=== PATIENT | female | born 1950 | race Hispanic/Latino ===

== ENCOUNTER → 2023-12-17 | Outpatient (CLI) | payer OTHER, MEDICARE ==
[2023-12-17] MEDS: REGADENOSON 0.4 MG/5 ML PF SYG IVP SCH (11:14)
== END | disposition home or self-care (01) ==
LOC: RAH 08:56
PROVIDERS: ATTEND Internal Medicine Cardiovascular Disease
DX: R07.9 Chest pain, unspecified (principal); I25.9 Chronic ischemic heart disease, unspecified
CPT/HCPCS: 78452; 93017; J2785; A9500 ×2; 96374